=== PATIENT | male | born 1960 | race Caucasian/White ===

== ENCOUNTER 2016-10-26 07:18 | Emergency (ER) | payer BC ==
[~2016-10-26] VITALS: Ht 182.9 cm; Wt 86.4 kg
[~2016-10-26 07:18] MED LIST: DOXYCYCLINE 10100 MG PO; GLUCOPHAGE500 MG/TAB PO
[2016-10-26 07:20] VITALS: BP 148/92; PULSE 84; TEMP 97.2
[2016-10-26 08:23] LABS: BASO % 0.5 % (0.0-2.0); EOS # 0.2 (0.0-0.7); EOS % 2.2 % (0-4.0); GRAN # 4.8 (1.4-6.5); GRAN % 65.2 % (42.2-75.2); HEMATOCRIT 39.9 % (42.0-52.0); HEMOGLOBIN 14.1 g/dl (13.5-18.0); LYMPH # 1.7 (1.2-3.4); LYMPH % 22.9 % (20.0-51.0); MEAN CELL VOLUME 87 fl (80.0-100.0); MEAN CORPUSCULAR HEMOGLOBIN 31 pg (27.0-31.0); MEAN CORPUSCULAR HGB CONC 35 g/dl (33.0-37.0); MEAN PLATELET VOLUME 9.9 fl (7.4-10.4); MONO # 0.7 (0.1-0.6); MONO % 8.9 % (1.7-9.3); PLATELET COUNT 276 K/mm3 (130-400); RED BLOOD COUNT 4.59 M/mm3 (4.20-5.60); REDCELL DISTRIBUTION WIDTH-CV 11.2 % (11.5-14.5); WHITE BLOOD COUNT 7.4 K/mm3 (4.8-10.8)
[2016-10-26 08:37] LABS: ADJUSTED CALCIUM 9.3 mg/dL (8.4-10.2); ALBUMIN 4.1 gm/dL (3.5-5.0); BILIRUBIN,TOTAL 0.6 mg/dL (0.0-1.0); C-REACTIVE PROTEIN 1.1 mg/dL (0.0-0.9); CALCIUM 9.4 mg/dL (8.4-10.2); CREATININE, serum 0.64 mg/dL (0.66-1.25); TOTAL PROTEIN 7.9 gm/dL (6.4-8.2)
[2016-10-26] MEDS ORDERED: DOXYCYCLINE 10100 MG PO (09:04)
[2016-10-26] MEDS ORDERED: CIPRO750 MG PO (09:04)
== END 2016-10-26 09:25 | disposition home or self-care (01) ==
LOC: COL.ER 07:18
PROVIDERS: Nurse Practitioner
DX: E11.621 Type 2 diabetes mellitus with foot ulcer (principal); L97.511 Non-pressure chronic ulcer of other part of right foot limited to breakdown of skin; Z79.84 Long term (current) use of oral hypoglycemic drugs; L08.89 Other specified local infections of the skin and subcutaneous tissue; B95.62 Methicillin resistant Staphylococcus aureus infection as the cause of diseases classified elsewhere; E11.40 Type 2 diabetes mellitus with diabetic neuropathy, unspecified; E11.69 Type 2 diabetes mellitus with other specified complication

== ENCOUNTER → 2016-11-01 | Outpatient (CLI) | payer BC ==
[~2016-11-01] MED LIST changes: +CIPRO750 MG PO
== END ==
LOC: WCC 10:02
DX: E11.621 Type 2 diabetes mellitus with foot ulcer (principal); E11.628 Type 2 diabetes mellitus with other skin complications; L97.519 Non-pressure chronic ulcer of other part of right foot with unspecified severity
CPT/HCPCS: 13919; 17717; 21064; A6021; A6212; G0463

== ENCOUNTER → 2016-11-08 | Outpatient (CLI) | payer BC | LOC: WCC 09:30 | DX: E11.621 Type 2 diabetes mellitus with foot ulcer (principal); L97.529 Non-pressure chronic ulcer of other part of left foot with unspecified severity | CPT/HCPCS: 13919; 17717; 21064; A6021; A6212; G0463 ==

== ENCOUNTER → 2016-11-15 | Outpatient (CLI) | payer BC | LOC: WCC 12:02 | DX: E11.621 Type 2 diabetes mellitus with foot ulcer (principal); L97.419 Non-pressure chronic ulcer of right heel and midfoot with unspecified severity | CPT/HCPCS: 13919; 17719; 27517; A6207; A6212; G0463 ==

== ENCOUNTER → 2016-11-22 | Outpatient (CLI) | payer BC | LOC: WCC 13:10 | DX: E11.621 Type 2 diabetes mellitus with foot ulcer (principal); L97.519 Non-pressure chronic ulcer of other part of right foot with unspecified severity | CPT/HCPCS: 13919; 27510; A6197; G0463 ==

== ENCOUNTER → 2016-11-30 | Outpatient (CLI) | payer BC | LOC: WCC 10:35 | DX: E11.621 Type 2 diabetes mellitus with foot ulcer (principal); L97.519 Non-pressure chronic ulcer of other part of right foot with unspecified severity | CPT/HCPCS: 13919; 18867; 21064; A6021; A6209; G0463 ==

== ENCOUNTER → 2016-12-06 | Outpatient (CLI) | payer BC | LOC: WCC 11:35 | DX: E11.621 Type 2 diabetes mellitus with foot ulcer (principal); L97.519 Non-pressure chronic ulcer of other part of right foot with unspecified severity | CPT/HCPCS: 13919; 13973; 17717; A6199; A6212; G0463 ==

== ENCOUNTER → 2016-12-18 | Outpatient (CLI) | payer BC | LOC: WCC 12:43 | DX: E11.621 Type 2 diabetes mellitus with foot ulcer (principal); L97.519 Non-pressure chronic ulcer of other part of right foot with unspecified severity | CPT/HCPCS: 13919; 17717; 21064; 27517; A6021; A6207; A6212; G0463 ==

== ENCOUNTER → 2016-12-27 | Outpatient (CLI) | payer BC | LOC: WCC 11:14 | DX: E11.621 Type 2 diabetes mellitus with foot ulcer (principal); L97.519 Non-pressure chronic ulcer of other part of right foot with unspecified severity | CPT/HCPCS: 13973; 17717; A6199; A6212; G0463 ==

== ENCOUNTER → 2017-01-03 | Outpatient (CLI) | payer BC | LOC: WCC 09:06 | DX: E11.621 Type 2 diabetes mellitus with foot ulcer (principal) | CPT/HCPCS: 17717; A6212; G0463 ==

== ENCOUNTER → 2018-05-23 | Outpatient (REF) | LOC: ZLAB.WCH 18:02 | DX: Z01.89 Encounter for other specified special examinations (principal) ==

== ENCOUNTER → 2018-05-24 | Outpatient (REF) | LOC: ZLAB.WCH 08:27 | DX: Z01.89 Encounter for other specified special examinations (principal) ==